=== PATIENT | female | born 1935 | race Caucasian/White ===

== ENCOUNTER → 2016-09-27 | Outpatient (CLI) | payer MEDICARE, OTHER ==
--- NOTE | 2016-09-28 07:06 | CT ---
EXAMINATION TYPE: CT brain wo/w con DATE OF EXAM: 09/27/2016 6:06 PM COMPARISON: NONE HISTORY: Leg weakness and fatigue per patient. Cerebral infarction and brain tumor per order. CT DLP: 1990 mGycm Automated exposure control for dose reduction was used. CONTRAST: CT scan of the head is performed without and with IV Contrast, patient injected with 65 mL of Visipaq ue 320. FINDINGS: Noncontrast images show no acute intracranial hemorrhage or midline shift. There is ventricular and s ulcal prominence consistent with mild age-related cerebral atrophy. There is low-attenuation in the p eriventricular white matter. Septum pellucidum vergae is present. There is old area of infarct low ri ght parietal region near axial image 22 and just below this low left occipital region on axial image 21. There is additional old infarct high right cerebellum on axial image 18 and left cerebellum on ax ial image 13. Postcontrast images show no suspicious enhancing intraparenchymal mass. Scleral calcifi cations in both globes are present. The visualized paranasal sinuses are clear. IMPRESSION: There is mild to moderate diffuse cerebral atrophy and chronic small vessel ischemic change. 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 No abnormal enhancing mass is noted.
== END | disposition home or self-care (01) ==
LOC: RADCTMAIN 15:57
PROVIDERS: ATTEND Psychiatry & Neurology Neurology
DX: I63.9 Cerebral infarction, unspecified (principal); G31.9 Degenerative disease of nervous system, unspecified; I67.82 Cerebral ischemia
CPT/HCPCS: 82565; 84520; 70470; 36415; Q9967; 82085; 82550; 85652; 86038; 86225; 86431